=== PATIENT | male | born 1980 | race Caucasian/White ===

== ENCOUNTER 2024-02-22 01:07 | Emergency (ER) | payer MEDICAID ==
[~2024-02-22] VITALS: Ht 177.8 cm; Wt 89.0 kg
[2024-02-22 01:14] VITALS: O2SAT 98
[2024-02-22] MEDS: LIDOCAINE HCL/PF 1% 10 MG/ML 5ML VIAL INFIL ONE (01:30)
[2024-02-22] MEDS: TETRACAINE 0.5% OPHTH DROPS 4ML LEFTEYE ONE (01:43)
[2024-02-22] MEDS: FLUORESCEIN SODIUM 1MG/STRIP LEFTEYE ONE (01:43)
[2024-02-22] MEDS: BACITRACIN ZINC OINT UDPKT TOP ONE (01:44)
[2024-02-22] MEDS ORDERED: ERYT1OIN6 LEFTEYE (02:22)
[2024-02-22 03:00] VITALS: BP 132/69; PULSE 91; RESP 16; TEMP 98.3
== END 2024-02-22 03:06 | disposition home or self-care (01) ==
LOC: ER 01:07
DX: S01.112A Laceration without foreign body of left eyelid and periocular area, initial encounter (principal); W20.8XXA Other cause of strike by thrown, projected or falling object, initial encounter; Y93.89 Activity, other specified; Y92.89 Other specified places as the place of occurrence of the external cause; Y99.8 Other external cause status
CPT/HCPCS: 12011; 99283; J3490; Z7610